=== PATIENT | female | born 1975 | race Caucasian/White ===

== ENCOUNTER 2016-05-01 08:49 | Emergency (ER) | payer OTHER ==
[~2016-05-01 08:49] MED LIST: ENDOCET1 TA3 PO; PERCOCET1 TA4 PO; ZOFRAN4 MG PO; ZYRTEC ALLERGY10 MG PO
--- NOTE | 2016-05-01 09:43 | ED ORDER SUMMARY ---
..... Patient: SHARON NICOLE OrderSheet [facility] VisitID: [id number] [address] [place] [address] 41y, F Registration Date/Time: 05/01/2016 ORDER SHEET Weight: 88.4 kg (stated) Allergies: No Known Drug Allergy GENERAL ORDERS: MEDICATION ORDERS: Bactrim DS PO (Tablet 800-160 mg) 1 tab (NOW) (09:05/01/2016 Johnnie Hager) (Ack 9:49 MWinterer R.N.) (9:58 MWinterer R.N.) Keflex PO 500 mg (NOW) (:05/01/2016 Johnnie Hager) (Ack 9:49 MWinterer R.N.) (9:58 MWinterer R.N.) IV FLUIDS: ORDER SHEET NOTES: [Electronically signed by Gail Singh R.N. (10:36 05/01/2016)] [Electronically signed by Tito Kilgore Dr. (06:23 05/03/2016)] [Electronically locked/signed by Gail Singh R.N. (10:36 05/01/2016)]
--- NOTE | 2016-05-01 09:43 | ED ORDER SUMMARY ---
..... Patient: SHARON NICOLE OrderSheet [facility] VisitID: [id number] [address] [place] [address] 41y, F Registration Date/Time: 05/01/2016 ORDER SHEET Weight: 88.4 kg (stated) Allergies: No Known Drug Allergy GENERAL ORDERS: MEDICATION ORDERS: Bactrim DS PO (Tablet 800-160 mg) 1 tab (NOW) (09:05/01/2016 Johnnie Hager) (Ack 9:49 MWinterer R.N.) (9:58 MWinterer R.N.) Keflex PO 500 mg (NOW) (:05/01/2016 Johnnie Hager) (Ack 9:49 MWinterer R.N.) (9:58 MWinterer R.N.) IV FLUIDS: ORDER SHEET NOTES: [Electronically signed by Gail Singh R.N. (10:36 05/01/2016)] [Electronically signed by Tito Kilgore Dr. (06:23 05/03/2016)] [Electronically locked/signed by Gail Singh R.N. (10:36 05/01/2016)]
--- NOTE | 2016-05-01 09:43 | ED CLINICAL REPORT ---
Clinical Report - Physicians/Mid Levels [facility] [address] [place] [address] 05/01/2016 8:50 Patient: SHARON NICOLE Arrived- By private vehicle. Historian- patient. HISTORY OF PRESENT ILLNESS Chief Complaint: BOIL. This started yesterday and is still present and worsening. It was gradual in onset and has been constant but is not gone now. It has been located on the right ankle (lateral). No cause has been identified. No recent medication, insect bite or food exposure. Was not recently exposed to poison amryann or poison oak. Similar symptoms previously: None. Recent medical care: Not recently seen/assessed. REVIEW OF SYSTEMS No fever, chills, nausea or vomiting. All systems otherwise negative, except as recorded above. PAST HISTORY See nurses notes. Tetanus immunization status is up-to-date. Medications: None. Allergies: No Known Drug Allergy. SOCIAL HISTORY Never smoker. No alcohol use or drug use. Is a local resident. ADDITIONAL NOTES The nursing notes have been reviewed. PHYSICAL EXAM Vital Signs: 05/01/2016 09:08 BP: 121/72. HR: 76. RR: 16. O2 saturation: 99%. Temp: 98.1 F. Blood pressure normal. Oxygen saturation normal. Appearance: Alert. Oriented X3. No acute distress. CVS: Normal heart rate and rhythm. Heart sounds normal. Respiratory: No respiratory distress. Breath sounds normal. Chest nontender. Abdomen: Nontender. No organomegaly. Skin: Skin warm and dry. Normal skin color. No rash. Normal skin turgor. (except for left lateral ankle over the maleolus. well healed intact post surgical scar with 1 x 2 cm area of fluctuant hyperemic and hyperpigmented raised area. Either abscess or hematoma. no tenderness at the joint line. no increased pain with passive ROM. Compartments soft. No other acute abnormalities.). PROGRESS AND PROCEDURES Course of Care: the patient is a pleasant 41-year-old female presenting for evaluation of ankle pain. The area in question appears to be directly over a remote surgical site. Appears to be infectious. I'm concerned about infection tracking deeper into the surgical site. Had discussion with patient in regards to themanagement of this injury. Do not feel bedside incision and drainage would be the best treatment plan at this time because of the history of surgery to that area. Would be concerned for possibly tracking and infection deeper into the woundand potentially into the joint. At this point in time it appears the infection is located primarily at the subcutaneous tissue. Had patientcontact her surgeon in regards to follow-up for the wound. Patient states that she can't get an appointment with him in the next few days. No signs of deeper or spreading infection. Does not appear to be going into the joint. No systemic symptoms. Vital signs are unremarkable. First dose of antibiotics provided here in the emergency department. I discussion with patient in regards to the workup, diagnosis, home care, follow-up, return precautions. All questions answered. The patient expressed understanding of these instructions and was agreeable to that. Disposition: Discharged. Condition: good. CLINICAL IMPRESSION 05/01/2016 09:08 BP: 121/72. HR: 76. RR: 16. O2 saturation: 99%. Temp: 98.1 F. Blood pressure normal. Oxygen saturation normal. Single abscess to the left lower extremity. Cellulitis of the left ankle. INSTRUCTIONS Off work today. Warnings: GENERAL WARNINGS: Return or contact your physician immediately if your condition worsens or changes unexpectedly, if not improving as expected, or if other problems arise. Specifically return if pain, vomiting, bleeding, breathing difficulty or fever. Your Current Medications: CONTINUE TAKING THE FOLLOWING MEDICATIONS: None*. Prescription Medications: Keflex 500 mg: take 1 capsule orally for 10 days. No refill. Substitution is permissible. (disp 30 caps) Bactrim DS 800 mg / 160 mg: take 1 tablet orally every 12 hours for 10 days. No refill. Substitution is permissible. (Disp 20 tabs) Follow-up: Return to the emergency department as needed. Follow up with your doctor. Reason for referral: recheck when you doctor gets back to the office ( 2 - 3 days). Summary of care provided to patient via paper. Screening today revealed the patient's blood pressure to be in the normal range. The patient should follow up with a primary care provider for blood pressure management. Understanding of the discharge instructions verbalized by patient. (Electronically signed by Tito Kilgore Dr. 05/03/2016 6:23)
--- NOTE | 2016-05-01 09:43 | ED NURSING NOTES ---
Clinical Report - Nurses [facility] [address] [place] [address] 05/01/2016 8:50 Patient: SHARON NICOLE TRIAGE Triage time 09:06. Acuity: LEVEL 4. Chief Complaint: TENDER AREA. Alert. SEPSIS SCREEN: Sepsis Screen. Negative (no infection suspected/documented). --09:10 Lakshmi Cantu R.N. 09:08 05/01/16. BP: 121/72. HR: 76. RR: 16. O2 saturation: 99%. Temp: 98.1 F. Pain level now 09/22. --09: Lakshmi Cantu R.N. Weight: 88.4 kg stated. Height/Length: 61 inches Per Patient. BMI: 36.8. --09: Lakshmi Cantu R.N. Medications None. --09: Lakshmi Cantu R.N. Medication/allergy information source: the patient. --09: Lakshmi Cantu R.N. Allergies No Known Drug Allergy. --09: Lakshmi Cantu R.N. History Arrived by private vehicle. Historian: patient. Primary physician ([place]). Reported as located on the left ankle. This started yesterday. It is described as painful. ( patient reports that she had surgery on a staph infection in February and that she went swimming yesterday and the pain and swelling started after that.). Treatment ONCOLOGY REGISTRAR: None. PAST MEDICAL HX: Immunizations: up-to-date. Last normal menstrual period was 2 weeks ago. SOCIAL HX: Never smoker. No alcohol use or drug use. FALL RISK ASSESSMENT: Fall risk assessment completed. No fall risk identified. NUTRITIONAL RISK ASSESSMENT: The nutritional risk assessment revealed no deficiencies. FUNCTIONAL ASSESSMENT: Functional assessment: no impairments noted. LEARNING NEEDS ASSESSMENT: The learning needs assessment revealed no barriers. SKIN INTEGRITY ASSESSMENT: Skin integrity risk assessment completed. No skin integrity risk identified. --09:10 Lakshmi Cantu R.N. ADDITIONAL SURGERIES: Adenoidectomy. Ankle Surgery. Tympanostomy Tubes. --09:08 Lakshmi Cantu R.N. Interventions ID band on patient. To room. --09:10 Lakshmi Cantu R.N. PHYSICAL ASSESSMENT Ambulatory to room. GENERAL / NEURO / PSYCH: Alert. Oriented X 4. RESPIRATORY: Respirations not labored. CVS: Pulses within normal limits. GI / : Abdomen nontender. SKIN: Skin is warm and dry. Tenderness on the left ankle- associated with erythema and swelling. --09:10 Lakshmi Cantu R.N. NURSING PROGRESS NOTES Two patient identifiers checked. Call light placed in reach. Side rails up x 1. Bed placed in lowest position. Brakes of bed on. Patient ready for evaluation- chart flagged. --09:11 Lakshmi Cantu R.N. 09:58 05/01/2016 Bactrim DS (Sulfamethoxazole-TMP DS) PO 1 tab given. Allergies verified and confirmed 5 rights. --09:58 Gail Singh R.N. 09:58 05/01/2016 Keflex (Cephalexin) PO 500 mg given. Allergies verified and confirmed 5 rights. --09:58 Gail Singh R.N. DISPOSITION / DISCHARGE Departure time: 10:00 May 01 2016. Condition at departure: improved and stable. No learning barriers present. Discharge instructions provided and reviewed with the patient. Reviewed medication(s) side effects, precautions, dosing and course information. Prescription(s) given to the patient. Patient verbalized understanding. Written instructions provided in [place]. The patient was discharged by the physician. She was discharged home. She left the Emergency Department ambulatory and via private vehicle. Patient driving. --10:35 Gail Singh R.N. 10:32 05/01/16. BP: 116/83. HR: 70. RR: 12. O2 saturation: 100%. Temp: 98.1 F (oral). --10:35 Gail Singh R.N. Locked/Released at 05/01/2016 10:36 by Gail Singh R.N.
--- NOTE | 2016-05-01 09:43 | ED NURSING NOTES ---
Clinical Report - Nurses [facility] [address] [place] [address] 05/01/2016 8:50 Patient: SHARON NICOLE TRIAGE Triage time 09:06. Acuity: LEVEL 4. Chief Complaint: TENDER AREA. Alert. SEPSIS SCREEN: Sepsis Screen. Negative (no infection suspected/documented). --09:10 Lakshmi Cantu R.N. 09:08 05/01/16. BP: 121/72. HR: 76. RR: 16. O2 saturation: 99%. Temp: 98.1 F. Pain level now 09/22. --09: Lakshmi Cantu R.N. Weight: 88.4 kg stated. Height/Length: 61 inches Per Patient. BMI: 36.8. --09: Lakshmi Cantu R.N. Medications None. --09: Lakshmi Cantu R.N. Medication/allergy information source: the patient. --09: Lakshmi Cantu R.N. Allergies No Known Drug Allergy. --09: Lakshmi Cantu R.N. History Arrived by private vehicle. Historian: patient. Primary physician ([place]). Reported as located on the left ankle. This started yesterday. It is described as painful. ( patient reports that she had surgery on a staph infection in February and that she went swimming yesterday and the pain and swelling started after that.). Treatment CRANK HAND: None. PAST MEDICAL HX: Immunizations: up-to-date. Last normal menstrual period was 2 weeks ago. SOCIAL HX: Never smoker. No alcohol use or drug use. FALL RISK ASSESSMENT: Fall risk assessment completed. No fall risk identified. NUTRITIONAL RISK ASSESSMENT: The nutritional risk assessment revealed no deficiencies. FUNCTIONAL ASSESSMENT: Functional assessment: no impairments noted. LEARNING NEEDS ASSESSMENT: The learning needs assessment revealed no barriers. SKIN INTEGRITY ASSESSMENT: Skin integrity risk assessment completed. No skin integrity risk identified. --09:10 Lakshmi Cantu R.N. ADDITIONAL SURGERIES: Adenoidectomy. Ankle Surgery. Tympanostomy Tubes. --09:08 Lakshmi Cantu R.N. Interventions ID band on patient. To room. --09:10 Lakshmi Cantu R.N. PHYSICAL ASSESSMENT Ambulatory to room. GENERAL / NEURO / PSYCH: Alert. Oriented X 4. RESPIRATORY: Respirations not labored. CVS: Pulses within normal limits. GI / : Abdomen nontender. SKIN: Skin is warm and dry. Tenderness on the left ankle- associated with erythema and swelling. --09:10 Lakshmi Cantu R.N. NURSING PROGRESS NOTES Two patient identifiers checked. Call light placed in reach. Side rails up x 1. Bed placed in lowest position. Brakes of bed on. Patient ready for evaluation- chart flagged. --09:11 Lakshmi Cantu R.N. 09:58 05/01/2016 Bactrim DS (Sulfamethoxazole-TMP DS) PO 1 tab given. Allergies verified and confirmed 5 rights. --09:58 Gail Singh R.N. 09:58 05/01/2016 Keflex (Cephalexin) PO 500 mg given. Allergies verified and confirmed 5 rights. --09:58 Gail Singh R.N. DISPOSITION / DISCHARGE Departure time: 10:00 May 01 2016. Condition at departure: improved and stable. No learning barriers present. Discharge instructions provided and reviewed with the patient. Reviewed medication(s) side effects, precautions, dosing and course information. Prescription(s) given to the patient. Patient verbalized understanding. Written instructions provided in [place]. The patient was discharged by the physician. She was discharged home. She left the Emergency Department ambulatory and via private vehicle. Patient driving. --10:35 Gail Singh R.N. 10:32 05/01/16. BP: 116/83. HR: 70. RR: 12. O2 saturation: 100%. Temp: 98.1 F (oral). --10:35 Gail Singh R.N. Locked/Released at 05/01/2016 10:36 by Gail Singh R.N.
--- NOTE | 2016-05-03 06:23 | ED MED RECONCILIATION SUMMARY ---
Patient: SHARON NICOLE Medication Reconciliation Report [facility] VisitID: [id number] [place] [address] 41y, F Registration Date/Time: 05/01/2016 Weight: 88.4 kg Height/Length: 61 in. BMI: 36.8 ALLERGIES: No Known Drug Allergy The patient's Home Medications are listed below: NONE. The source(s) of the original Home Medication information: patient The following Medications were given to the patient in the Emergency Department: Bactrim DS [PO] PO 1 tab, administered: 05/01/2016 9:58:00 AM Keflex [PO] PO 500 mg, administered: 05/01/2016 9:58:00 AM The following Medications were prescribed to the patient: Keflex 500 mg: take 1 capsule orally for 10 days. No refill. Substitution is permissible.(disp 30 caps) -- Tito Kilgore Dr. Bactrim DS 800 mg / 160 mg: take 1 tablet orally every 12 hours for 10 days. No refill. Substitution is permissible.(Disp 20 tabs) -- Tito Kilgore Dr.
--- NOTE | 2016-05-03 06:23 | ED MAR SUMMARY ---
..... Medication Administration Record [facility] [address] [place] [address] Patient: SHARON NICOLE Visit ID: [id number] 41y, F Weight: 88.4 kg Height/Length: 61 in BMI: 36.8 ALLERGIES: No Known Drug Allergy Given 09:05/01/2016 Gail Singh, ROscarN. Medication Administered: BACTRIM DS [PO] (SULFAMETHOXAZOLE-TMP DS), Dose: 1 tab PO. Medication Ordered: Bactrim DS PO (Tablet 800-160 mg) 1 tab (NOW). Given 09:05/01/2016 Gail Singh, R.N. Medication Administered: KEFLEX [PO] (CEPHALEXIN), Dose: 500 mg PO. Medication Ordered: Keflex PO 500 mg (NOW).
--- NOTE | 2016-05-03 06:23 | ED DISCHARGE INSTRUCTIONS ---
Patient: SHARON NICOLE General Instructions [facility] VisitID: [id number] [place] [address] 41y, F Registration Date/Time: 05/01/2016 05/01/2016 09:08 BP: 121/72. HR: 76. RR: 16. O2 saturation: 99%. Temp: 98.1 F. Blood pressure normal. Oxygen saturation normal. Single abscess to the left lower extremity. Cellulitis of the left ankle. INSTRUCTIONS Off work today. Warnings: GENERAL WARNINGS: Return or contact your physician immediately if your condition worsens or changes unexpectedly, if not improving as expected, or if other problems arise. Specifically return if pain, vomiting, bleeding, breathing difficulty or fever. Your Current Medications: CONTINUE TAKING THE FOLLOWING MEDICATIONS: None*. Prescription Medications: Keflex 500 mg: take 1 capsule orally for 10 days. No refill. Substitution is permissible. (disp 30 caps) Bactrim DS 800 mg / 160 mg: take 1 tablet orally every 12 hours for 10 days. No refill. Substitution is permissible. (Disp 20 tabs) Follow-up: Return to the emergency department as needed. Follow up with your doctor. Reason for referral: recheck when you doctor gets back to the office ( 2 - 3 days). Summary of care provided to patient via paper. Screening today revealed the patient's blood pressure to be in the normal range. The patient should follow up with a primary care provider for blood pressure management. Understanding of the discharge instructions verbalized by patient. ADDITIONAL INFORMATION Cellulitis You have an infection of the skin known as cellulitis. This usually starts with a scrape, cut, insect bite, blister or other opening in the skin which becomes infected. This is a serious condition. It must be watched closely to be sure the infection is not spreading. With antibiotic treatment, the size of the red area will gradually shrink in size until the skin returns to normal. This will take 7-10 days. The red area should never increase in size once the antibiotic medicine has been started. Occasionally, an infection will be resistant to one antibiotic and another one will have to be used. Home Care: 1) Limit the use of the affected part, since excess movement can cause the infection to spread. 2) If the infection is on your leg, walk as little as possible during the first few days of the treatment. Keep your leg elevated while sitting. This will reduce swelling. 3) Take all of the antibiotic medicine exactly as directed until it is gone. Be careful not to miss any doses, especially during the first seven days. Follow Up with your doctor or this facility as directed. Check the infected area daily for the warning signs listed below. Get Prompt Medical Attention if any of the following occur: -- Spreading area of redness -- Increasing swelling or pain -- Appearance of pus or drainage -- Fever over 100.4 F (38.0 C) oral, or over 101.4 F (38.6 C) rectal, after two days on antibiotics Abscess (Antibiotic Treatment Only) An abscess (sometimes called a boil) occurs when bacteria get trapped under the skin and begin to grow. Pus forms inside the abscess as the body responds to the bacteria. An abscess can occur with an insect bite, ingrown hair, blocked oil gland, pimple, cyst, or puncture wound. In the early stages, redness and tenderness are the only symptoms. Sometimes, this stage can be treated with antibiotics alone. If the abscess does not respond to antibiotic treatment, it will need to be drained with a small cut, under local anesthesia. Home care The following will help you care for your abscess at home: Soak the wound in hot water or apply hot packs (small towel soaked in hot water) to the area for 20 minutes at a time. Do this three to four times a day. Apply antibiotic cream or ointment onto the skin 3-4 times a day, unless something else was prescribed. Some ointments include an antibiotic plus a local pain reliever. If your doctor prescribed antibiotics, do not stop taking this medication until you have finished the prescribed course or the doctor tells you to stop. You may use an efhu-nuq-plndnyw pain medication to control pain, unless another pain medicine was prescribed. If you have chronic liver or kidney disease or ever had a stomach ulcer or GI bleeding, talk with your doctor before using these any of these. Follow-up care Follow up with your health care provider as advised by our staff. Look at your wound each day for the signs of worsening infection listed below. When to seek medical care Get prompt medical attention if any of the following occur: An increase in redness or swelling Red streaks in the skin leading away from the abscess An increase in local pain or swelling Fever of 100.4F (38C) or higher, or as directed by your health care provider Pus or fluid coming from the abscess Cephalexin Monohydrate Oral tablet What is this medicine? CEPHALEXIN (sef a PITA in) is a cephalosporin antibiotic. It is used to treat certain kinds of bacterial infections It will not work for colds, flu, or other viral infections. How should I use this medicine? Take this medicine by mouth with a full glass of water. Follow the directions on the prescription label. This medicine can be taken with or without food. Take your medicine at regular intervals. Do not take your medicine more often than directed. Take all of your medicine as directed even if you think you are better. Do not skip doses or stop your medicine early. Talk to your political consultant regarding the use of this medicine in children. While this drug may be prescribed for selected conditions, precautions do apply. What side effects may I notice from receiving this medicine? Side effects that you should report to your doctor or health client care manager as soon as possible: allergic reactions like skin rash, itching or hives, swelling of the face, lips, or tongue breathing problems pain or trouble passing urine redness, blistering, peeling or loosening of the skin, including inside the mouth severe or watery diarrhea unusually weak or tired yellowing of the eyes, skin Side effects that usually do not require medical attention (report to your doctor or health client care manager if they continue or are bothersome): gas or heartburn genital or anal irritation headache joint or muscle pain nausea, vomiting What may interact with this medicine? probenecid some other antibiotics What if I miss a dose? If you miss a dose, take it as soon as you can. If it is almost time for your next dose, take only that dose. Do not take double or extra doses. There should be at least 4 to 6 hours between doses. Where should I keep my medicine? Keep out of the reach of children. Store at room temperature between 59 and 86 degrees F (15 and 30 degrees C). Throw away any unused medicine after the expiration date. What should I tell my health care provider before I take this medicine? They need to know if you have any of these conditions: kidney disease stomach or intestine problems, especially colitis an unusual or allergic reaction to cephalexin, other cephalosporins, penicillins, other antibiotics, medicines, foods, dyes or preservatives or trying to get breast-feeding What should I watch for while using this medicine? Tell your doctor or health client care manager if your symptoms do not begin to improve in a few days. Do not treat diarrhea with over the counter products. Contact your doctor if you have diarrhea that lasts more than 2 days or if it is severe and watery. If you have diabetes, you may get a false-positive result for sugar in your urine. Check with your doctor or health client care manager. Sulfamethoxazole, Trimethoprim Oral tablet What is this medicine? SULFAMETHOXAZOLE; TRIMETHOPRIM or SMX-TMP (suhl fuh meth OK priscilla zohl; trye METH oh prim) is a combination of a sulfonamide antibiotic and a second antibiotic, trimethoprim. It is used to treat or prevent certain kinds of bacterial infections. It will not work for colds, flu, or other viral infections. How should I use this medicine? Take this medicine by mouth with a full glass of water. Follow the directions on the prescription label. Take your medicine at regular intervals. Do not take it more often than directed. Do not skip doses or stop your medicine early. Talk to your political consultant regarding the use of this medicine in children. Special care may be needed. This medicine has been used in children as young as 2 months of age. What side effects may I notice from receiving this medicine? Side effects that you should report to your doctor or health client care manager as soon as possible: allergic reactions like skin rash or hives, swelling of the face, lips, or tongue breathing problems fever or chills, sore throat irregular heartbeat, chest pain joint or muscle pain pain or difficulty passing urine red pinpoint spots on skin redness, blistering, peeling or loosening of the skin, including inside the mouth unusual bleeding or bruising unusually weak or tired yellowing of the eyes or skin Side effects that usually do not require medical attention (report to your doctor or health client care manager if they continue or are bothersome): diarrhea dizziness headache loss of appetite nausea, vomiting nervousness What may interact with this medicine? Do not take this medicine with any of the following medications: aminobenzoate potassium dofetilide metronidazole This medicine may also interact with the following medications: TIFFANIE inhibitors like benazepril, enalapril, lisinopril, and ramipril cyclosporine digoxin diuretics indomethacin medicines for diabetes methenamine methotrexate phenytoin potassium supplements pyrimethamine sulfinpyrazone tricyclic antidepressants warfarin What if I miss a dose? If you miss a dose, take it as soon as you can. If it is almost time for your next dose, take only that dose. Do not take double or extra doses. Where should I keep my medicine? Keep out of the reach of children. Store at room temperature between 20 to 25 degrees C (68 to 77 degrees F). Protect from light. Throw away any unused medicine after the expiration date. What should I tell my health care provider before I take this medicine? They need to know if you have any of these conditions: anemia asthma being treated with anticonvulsants if you frequently drink alcohol containing drinks kidney disease liver disease low level of folic acid or [id number] dehydrogenase poor nutrition or malabsorption porphyria severe allergies thyroid disorder an unusual or allergic reaction to sulfamethoxazole, trimethoprim, sulfa drugs, other medicines, foods, dyes, or preservatives or trying to get breast-feeding What should I watch for while using this medicine? Tell your doctor or health client care manager if your symptoms do not improve. Drink several glasses of water a day to reduce the risk of kidney problems. Do not treat diarrhea with over the counter products. Contact your doctor if you have diarrhea that lasts more than 2 days or if it is severe and watery. This medicine can make you more sensitive to the sun. Keep out of the sun. If you cannot avoid being in the sun, wear protective clothing and use a sunscreen. Do not use sun lamps or tanning beds/booths. You have been given the following additional information: Cellulitis Abscess, Antiobiotic Treatment Only Cephalexin Monohydrate Oral tablet Sulfamethoxazole, Trimethoprim Oral tablet Off work today. (Electronically signed by Tito Kilgore Dr. 05/03/2016 6:23)
--- NOTE | 2016-05-03 06:23 | ED MAR SUMMARY ---
..... Medication Administration Record [facility] [address] [place] [address] Patient: SHARON NICOLE Visit ID: [id number] 41y, F Weight: 88.4 kg Height/Length: 61 in BMI: 36.8 ALLERGIES: No Known Drug Allergy Given 09:05/01/2016 Gail Singh, ROscarN. Medication Administered: BACTRIM DS [PO] (SULFAMETHOXAZOLE-TMP DS), Dose: 1 tab PO. Medication Ordered: Bactrim DS PO (Tablet 800-160 mg) 1 tab (NOW). Given 09:05/01/2016 Gail Singh, R.N. Medication Administered: KEFLEX [PO] (CEPHALEXIN), Dose: 500 mg PO. Medication Ordered: Keflex PO 500 mg (NOW).
--- NOTE | 2016-05-03 06:23 | ED MED RECONCILIATION SUMMARY ---
Patient: SHARON NICOLE Medication Reconciliation Report [facility] VisitID: [id number] [place] [address] 41y, F Registration Date/Time: 05/01/2016 Weight: 88.4 kg Height/Length: 61 in. BMI: 36.8 ALLERGIES: No Known Drug Allergy The patient's Home Medications are listed below: NONE. The source(s) of the original Home Medication information: patient The following Medications were given to the patient in the Emergency Department: Bactrim DS [PO] PO 1 tab, administered: 05/01/2016 9:58:00 AM Keflex [PO] PO 500 mg, administered: 05/01/2016 9:58:00 AM The following Medications were prescribed to the patient: Keflex 500 mg: take 1 capsule orally for 10 days. No refill. Substitution is permissible.(disp 30 caps) -- Tito Kilgore Dr. Bactrim DS 800 mg / 160 mg: take 1 tablet orally every 12 hours for 10 days. No refill. Substitution is permissible.(Disp 20 tabs) -- Tito Kilgore Dr.
== END 2016-05-01 09:59 | disposition home or self-care (01) ==
LOC: ED SRH 08:49
DX: L03.116 Cellulitis of left lower limb (principal); L02.416 Cutaneous abscess of left lower limb

== ENCOUNTER 2016-10-05 12:25 | Outpatient (CLI) | payer OTHER ==
--- NOTE | 2016-10-05 14:56 | DIAGNOSTIC IMAGING REPORT ---
PROCEDURE: MR LOWER EXT JOINT W/WO-LEFT INDICATION: LT ANKLE BONE INFECTION TECHNIQUE: T1 and STIR sagittal, axial, coronal and coronal-oblique images. Following 10 ml of ProHance IV, additional axial, coronal and sagittal T1 fat sat sequences were obtained. COMPARISON: Left ankle x-ray 09/09/2015 and left ankle MRI 02/15/2014. FINDINGS: There are mild magnetic susceptibility artifacts through the distal tibia and talus. There are marked magnetic susceptibility artifacts over the distal fibula, obscuring the anatomy and it is not possible to assess for bone marrow changes or abnormal enhancement. IMPRESSION: 1.
== END 2016-10-05 23:00 | disposition home or self-care (01) ==
LOC: MRI SRH 12:25
DX: M86.672 Other chronic osteomyelitis, left ankle and foot (principal)